=== PATIENT | female | born 1960 ===

== ENCOUNTER 2017-10-27 08:58 | Day surgery (SDC) | payer BC ==
[2017-10-25 17:49] VITALS: BMI 28.3
[2017-10-27] MEDS ORDERED: PROPOFOL 20 ML ONE ×2 (11:40→12:04)
[2017-10-27] MEDS ORDERED: MIDAZOLAM HCL 2 MG/2 ML SINGLE DOSE VIAL ONE (11:40)
[2017-10-27] MEDS ORDERED: LIDOCAINE HCL/PF 2% SDV 5ML VIAL ONE (11:46)
[2017-10-27] MEDS ORDERED: ceFAZolin SODIUM 1 GM VIAL ONE (11:52)
[2017-10-27] MEDS ORDERED: ceFAZolin SODIUM 1 GM VIAL IVPB ONE (11:53)
[2017-10-27] MEDS ORDERED: BUPIVACAINE HCL/PF 0.5% (5MG/ML) 10 ML VIAL IJ ONE (12:10)
[2017-10-27] MEDS ORDERED: LIDOCAINE HCL 1%, 10 MG/ML (20ML VIAL) PNB ONE (12:10)
[2017-10-27 13:36] VITALS: TEMP 97.8
[2017-10-27] MEDS ORDERED: ACETAMINOPHEN 325 MG TABLET (FP) PO PRN (14:30)
[2017-10-27] MEDS ORDERED: LACTATED RINGERS SOLUTION 1,000 ML IV SCH (14:30)
[2017-10-27 15:41] VITALS: BP 114/70; PULSE 60
--- NOTE | 2017-10-27 16:45 | OP ---
DATE OF OPERATION: 10/27/2017 PREOPERATIVE DIAGNOSIS: Painful hardware left foot. POSTOPERATIVE DIAGNOSIS: same OPERATION: Removal of hardware, left footx 2 ANESTHESIA: Local with IV sedation. SURGEON: Bina Reyes DPM ASSISTANTS: Alberto Mishra, PGY-3; Julia Humphries, MS-4. HEMOSTASIS: Pneumatic ankle tourniquet set at 250 mmHg for 32 minutes. ESTIMATED BLOOD LOSS: 2 mL MATERIALS: 4-0 nylon. PATHOLOGY: Osteomed partially threaded screws, 2.4 x 16 mm and 2.4 x 16 mm. OPERATIVE PROCEDURE: The patient was brought to the operating room and placed on the operating table in the supine position. A pneumatic ankle tourniquet was then placed on the patient's left ankle. Following IV sedation and local anesthesia to the left foot was obtained utilizing 15 mL of a 1:1 mixture of 1% lidocaine plain and 0.5 % Marcaine plain, the foot was then scrubbed, prepped, and draped in the usual aseptic manner. An Esmarch bandage was then utilized to exsanguinate the patient's left foot, and the tourniquet was inflated. A C-arm and two 25-gauge 1.5-inch needles were used to find the exact location of each screw along the dorsal aspect of the first metatarsal head. Once 2 screws were identified, each needle was then removed, and two small separate incisions were made measuring approximately 1 cm each in the area of the corresponding screw. Both incisions were then deepened using sharp and blunt dissection to the level of each screw. Care was taken throughout dissection to avoid damage to neurovascular and tendinous structures. Next, the distal screw head was visualized. Using an Osteomed screwdriver and freer elevator, the screw was fully removed. Next, the proximal screw head was visualized at the proximal incision site. Using an Osteomed screwdriver and freer elevator, the screw was fully removed. Both screws that were removed were Osteomed partially threaded screws measuring 2.4 x 16 mm each and were then sent to Pathology. It was verified that both screws were removed in their entirety by palpating and using intraoperative fluoroscopy. At this time, the wounds were then irrigated with copious amount of sterile normal saline. Then, both skin incision sites were coapted using 4-0 nylon in simple fashion. Upon completion of the procedure, a total of 5 mL of 0.5% Marcaine plain with 1 mL of 4 mg dexamethasone was infiltrated around the surgical sites. The incisions were dressed with Betadine-soaked Adaptic, covered in sterile compressive dressing such as 4 x 4's and Kerlix. The tourniquet was then deflated, and immediate hyperemia returned to all digits. The foot was then wrapped in Paco bandage. The patient tolerated the procedure well and was transferred to the recovery room with all vital signs stable and vascular status intact to the left foot. Following postoperative monitoring , the patient will be discharged and given instructions which were discussed prior to the surgery. DIPESH Henriquez/[id number] MTDLeon
--- NOTE | 2017-10-31 13:23 | PATH ---
Surgical Pathology Report Patient Name: HILLARY URBANO [facility]. Rec. #: [id number] /Age/Gender: 1960 (Age: 57) / F Account: [id number] Location: [facility] SURGICAL Taken: 10/27/2017 Received: 10/28/2017 Reported: 10/31/2017 Physicians: Bina Reyes DPM Specimen(s) Received REMOVED HARDWARE LEFT FOOT Clinical History Painful screws left foot Final Diagnosis ORTHOPEDIC HARDWARE, LEFT FOOT, REMOVAL: METALLIC SCREWS CONSISTENT WITH ORTHOPEDIC HARDWARE (GROSS ONLY) Electronically Signed Oren Moreno M.D. Gross Description Received fresh labeled "removed hardware left foot," are 2 bourne metallic screws measuring 2.3 and 2.6 cm in length. No soft tissue is present. No sections are submitted, gross only. /10/28/2017 saudi10/28/2017
== END 2017-10-27 14:30 | disposition home or self-care (01) ==
LOC: JASU-SURG 08:58
PROVIDERS: ATTEND Podiatrist Foot Surgery
PROC: 0YPB0YZ Removal of Other Device from Left Lower Extremity, Open Approach (ICD-10-PCS; principal; 2017-10-27 11:00)
DX: T84.89XS Other specified complication of internal orthopedic prosthetic devices, implants and grafts, sequela (principal); Y83.8 Other surgical procedures as the cause of abnormal reaction of the patient, or of later complication, without mention of misadventure at the time of the procedure
CPT/HCPCS: 73630-TC-LT; 76000-TC-FY; 88300-TC; 94760